=== PATIENT | female | born 1950 | race Caucasian/White ===

== ENCOUNTER → 2017-08-06 | Day surgery (SDC) | payer MEDICARE, OTHER ==
[2017-08-03 10:57] LABS: BASOPHILS % 0.9 % (0.0-1.0); EOSINOPHILS # (AUTO) 0.1 (0.0-0.4); EOSINOPHILS % 3.1 % (0.0-6.0); HEMATOCRIT 40.9 % (34.2-44.1); HEMOGLOBIN 13.7 g/dL (12.0-16.0); LYMPHOCYTES # (AUTO) 1.2 (1.0-3.2); LYMPHOCYTES % 26.2 % (18.0-39.1); MEAN CORPUSCULAR HEMOGLOBIN 29.8 pg (28-32); MEAN CORPUSCULAR HGB CONC 33.5 g/dL (31-35); MEAN CORPUSCULAR VOLUME 89.1 fL (81-99); MONOCYTES # (AUTO) 0.4 (0.2-0.8); MONOCYTES % 9.1 % (4.4-11.3); NEUTROPHILS # (AUTO) 2.7 (2.1-6.9); NEUTROPHILS % 60.5 % (38.7-80.0); PLATELET COUNT 178 x10e3/uL (140-360); RED BLOOD COUNT 4.59 x10e6/uL (3.6-5.1); RED CELL DISTRIBUTION WIDTH 11.9 % (11.7-14.4)
[2017-08-03 11:13] LABS: ANION GAP 12.2 mmol/L (8-16); BLOOD UREA NITROGEN 13 mg/dL (7-26); BUN/CREATININE RATIO 17 (6-25); CALCIUM 9.8 mg/dL (8.4-10.2); CARBON DIOXIDE 30 mmol/L (22-29); CHLORIDE 98 mmol/L (98-107); CREATININE, SERUM 0.77 mg/dL (0.57-1.11); EST GLOMERULAR FILTRATION RATE > 60 ML/MIN (60-); GLUCOSE 100 mg/dL (74-118); POTASSIUM 3.2 mmol/L (3.5-5.1); SODIUM 137 mmol/L (136-145)
--- NOTE | 2017-08-03 11:31 | Diagnostic Imaging Report ---
PROCEDURE: Frontal and lateral views of the chest. COMPARISON: None. INDICATIONS: PREOPERATIVE CHEST XRAY FOR COLONOSCOPY FINDINGS: Lines/tubes: None. Lungs: The lungs are well inflated and clear. There is no evidence of pneumonia or pulmonary edema. Pleura: There is no pleural effusion or pneumothorax. Heart and mediastinum: The heart and the mediastinum are normal. Bones: No acute bony abnormality. Degenerative changes of the thoracic spine. IMPRESSION: No acute radiographic abnormality. Dictated by: Johnie Oliver M.D. on 08/03/2017 at 11:41 Electronically approved by: Johnie Oliver M.D. on 08/03/2017 at 11:41
[~2017-08-06] MED LIST: B-COMPLEX PLUS1 EACH PO; DEXAMETHASONE SOD PHOS INJ 4 MG/ML VIAL ONE; ESIDRIX25 MG PO; FENTANYL CITRATE/PF 100MCG/2 ML INJ ONE; IFLORA PO; LEVOTHYROXINE50 MCG PO; LEVOTHYROXINE75 MCG PO; LIDOCAINE HCL 2% LOCAL INJ 5 ML SDV VIAL INJ ONE; MIDAZOLAM HCL 2 MG/2 ML VIAL ONE; NEXIUM40 MG PO; OCUVITE TABLET1 EAC1 PO; ONDANSETRON HCL INJ 2 MG/ML VIAL ONE; POTASSIUM CHLO10 ME1 PO; PROPOFOL IV EMULSION 10 MG/ML 20 ML VIAL ONE; SEVOFLURANE INHAL SOLN 250 ML PEN BTL ONE; SLOW RELEASE I142 MG PO; VIT C PO; VIT D2 PO; [UNRECOGNIZED DRUG - OTHER] PO
--- OUTSIDE RECORDS SUMMARY | 2017-08-06 09:32 | XMS REPORT ---
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 Allergies, Adverse Reactions, Alerts This patient has no known allergies or adverse reactions. Medications This patient has no known medications. Results Test Description Test Time Test Comments Text Results Atomic Results Result Comments CHEST 2 VIEWS [place] [address] Patient Name: EVY ALAN MR #: [id number] : 1950 Age/Sex: 67/F Req #: [id number] Adm Physician: Ordered by: EMIR BERKOWITZ MD Report #: [id number] Location: OR Room/Bed: Procedure: [id number] DX/CHEST 2 VIEWS Exam Date: 08/03/17 Exam Time: 1105 REPORT STATUS: Signed PROCEDURE: Frontal and lateral views of the chest. COMPARISON: None. INDICATIONS: PREOPERATIVE CHEST XRAY FOR COLONOSCOPY FINDINGS: Lines/tubes: None. Lungs: The lungs are well inflated and clear. There is no evidence of pneumonia or pulmonary edema. Pleura: There is no pleural effusion or pneumothorax. Heart and mediastinum: The heart and the mediastinum are normal. Bones: No acute bony abnormality. Degenerative changes of the thoracic spine. IMPRESSION: No acute radiographic abnormality. Dictated by: Anay Alicea M.D. on 08/03/2017 at 11:41 Electronically approved by: Anay Alicea M.D. on 08/03/2017 at 11:41 Dictated By : ANAY ALICEA MD 1141 Transcribed By: ADIS on 08/03/17 1141 COPY TO: EMIR BERKOWITZ MD
== END | disposition home or self-care (01) ==
LOC: OR 09:30
PROVIDERS: ATTEND Surgery
DX: R19.4 Change in bowel habit (principal); K57.30 Diverticulosis of large intestine without perforation or abscess without bleeding; K64.5 Perianal venous thrombosis; E03.9 Hypothyroidism, unspecified; J45.909 Unspecified asthma, uncomplicated; Z01.810 Encounter for preprocedural cardiovascular examination; Z01.812 Encounter for preprocedural laboratory examination; Z01.818 Encounter for other preprocedural examination
CPT/HCPCS: 36415 ×2; 45378; 71046; 80048; 84132; 85025; 93005; J1100; J2001; J2250; J2405

== ENCOUNTER 2021-07-29 15:00 | Inpatient (IN) | payer MEDICARE, OTHER ==
[2021-07-28 21:00] VITALS: BP 153/62
[~2021-07-29 15:00] MED LIST changes: -DEXAMETHASONE SOD PHOS INJ 4 MG/ML VIAL ONE; -FENTANYL CITRATE/PF 100MCG/2 ML INJ ONE; -LIDOCAINE HCL 2% LOCAL INJ 5 ML SDV VIAL INJ ONE; -MIDAZOLAM HCL 2 MG/2 ML VIAL ONE; -ONDANSETRON HCL INJ 2 MG/ML VIAL ONE; -PROPOFOL IV EMULSION 10 MG/ML 20 ML VIAL ONE; -SEVOFLURANE INHAL SOLN 250 ML PEN BTL ONE
[2021-07-29 16:04] VITALS: BP 132/79
[2021-07-29] MEDS ORDERED: VITAMIN D250 MCG PO (16:21)
[2021-07-29] MEDS ORDERED: MELOXICAM15 MG PO (16:22)
[2021-07-29] MEDS ORDERED: ATENOLOL25 MG PO (16:23)
[2021-07-29] MEDS ORDERED: OLMESARTAN-HCT1 EAC2 PO (16:26)
[2021-07-29] MEDS ORDERED: VITAMIN D2 PO (16:28)
[2021-07-29] MEDS ORDERED: VITAMIN D2 50000 UNIT PO SCH (16:45)
[2021-07-29 17:31] LABS: BASOPHILS % 0.2 % (0.0-1.0); EOSINOPHILS # (AUTO) 0.1 (0.0-0.4); EOSINOPHILS % 0.6 % (0.0-6.0); HEMATOCRIT 40.2 % (34.2-44.1); HEMOGLOBIN 13.2 g/dL (12.0-16.0); LYMPHOCYTES # (AUTO) 0.8 (1.0-3.2); LYMPHOCYTES % 9.5 % (18.0-39.1); MEAN CORPUSCULAR HEMOGLOBIN 28.6 pg (28-32); MEAN CORPUSCULAR HGB CONC 32.8 g/dL (31-35); MEAN CORPUSCULAR VOLUME 87.2 fL (81-99); MONOCYTES # (AUTO) 0.3 (0.2-0.8); MONOCYTES % 3.7 % (4.4-11.3); NEUTROPHILS # (AUTO) 6.9 (2.1-6.9); NEUTROPHILS % 85.8 % (38.7-80.0); PLATELET COUNT 217 x10e3/uL (140-360); RED BLOOD COUNT 4.61 x10e6/uL (3.6-5.1); RED CELL DISTRIBUTION WIDTH 13.6 % (11.7-14.4)
[2021-07-29 17:54] LABS: ALBUMIN 3.6 g/dL (3.5-5.0); ALBUMIN/GLOBULIN RATIO 1.4 (0.8-2.0); ANION GAP 12.7 mmol/L (8-16); CALCIUM 10.2 mg/dL (8.4-10.2); CREATININE, SERUM 0.95 mg/dL (0.57-1.11); POTASSIUM 3.7 mmol/L (3.5-5.1)
[2021-07-29] MEDS ORDERED: DIAZEPAM 5 MG TAB PO NR (19:30)
[2021-07-29 20:00] VITALS: BP 153/62
[2021-07-29 21:00] VITALS: BP 153/62
[2021-07-29] MEDS ORDERED: IOPAMIDOL 370 MG/ML 200 ML INFUS..BTL INJ ONE (21:40)
[2021-07-29] MEDS ORDERED: SODIUM CHLORIDE 0.9% 50ML 50 ML ONE (21:40)
[2021-07-30] VITALS (8 sets, daily range): BP systolic 119–168; BP diastolic 51–88
[2021-07-30] MEDS: SODIUM CHLORIDE 0.9% 1000ML 1,000 ML IV SCH ×3 (01:05→09:25)
[2021-07-30] MEDS ORDERED: CITRATE OF MAGNESIA 300ML BOTTLE PO ONE ×2 (05:00→07:00)
[2021-07-30] MEDS ORDERED: NON-FORMULARY MEDICATION (Meloxicam 15 MG) PO SCH (09:00)
[2021-07-30] MEDS ORDERED: NON-FORMULARY MEDICATION (Atenolol 25 MG) PO SCH (09:00)
[2021-07-30] MEDS ORDERED: HYOSCYAMINE SULFATE 0.5 MG/ML INJ ONE (13:04)
[2021-07-30] MEDS ORDERED: GLUCAGON FOR INJ 1 MG VIAL ONE (13:04)
[2021-07-30] MEDS ORDERED: METOCLOPRAMIDE HCL 10 MG/2ML VIAL ONE (13:04)
[2021-07-30] MEDS ORDERED: PROPOFOL IV EMULSION 10 MG/ML 20 ML VIAL ONE (13:04)
[2021-07-30] MEDS ORDERED: LIDOCAINE HCL 2% LOCAL INJ 5 ML SDV VIAL INJ ONE (13:04)
[2021-07-30 14:11] LABS: WBC,FECAL (FECAL LACTOFERRIN) NEGATIVE (NEGATIVE)
[2021-07-30] MEDS: ATENOLOL 50 MG TAB PO SCH (16:46)
[2021-07-30] MEDS: MELOXICAM 7.5 MG TAB PO SCH (16:46)
[2021-07-30] MEDS: DICYCLOMINE HCL 20 MG TAB PO SCH ×2 (16:46→21:00)
[2021-07-30] MEDS: OLMESARTAN 20 MG TAB PO SCH (16:46)
[2021-07-30] MEDS: HYDROCHLOROTHIAZIDE 25 MG TAB PO SCH (16:46)
[2021-07-30] MEDS ORDERED: DIAZEPAM 5 MG TAB PO PRN (20:45)
[2021-07-31] VITALS (7 sets, daily range): BP systolic 145–161; BP diastolic 63–80
[2021-07-31] MEDS: SODIUM CHLORIDE 0.9% 1000ML 1,000 ML IV SCH ×5 (04:14→22:00)
[2021-07-31 05:07] LABS: BASOPHILS % 0.4 % (0.0-1.0); EOSINOPHILS # (AUTO) 0.1 (0.0-0.4); EOSINOPHILS % 2.6 % (0.0-6.0); HEMATOCRIT 37.1 % (34.2-44.1); HEMOGLOBIN 12.3 g/dL (12.0-16.0); LYMPHOCYTES # (AUTO) 0.9 (1.0-3.2); LYMPHOCYTES % 16.3 % (18.0-39.1); MEAN CORPUSCULAR HGB CONC 33.2 g/dL (31-35); MEAN CORPUSCULAR VOLUME 87.5 fL (81-99); MONOCYTES # (AUTO) 0.4 (0.2-0.8); NEUTROPHILS % 73.3 % (38.7-80.0); PLATELET COUNT 203 x10e3/uL (140-360); RED BLOOD COUNT 4.24 x10e6/uL (3.6-5.1); RED CELL DISTRIBUTION WIDTH 13.5 % (11.7-14.4)
[2021-07-31] MEDS ORDERED: DIAZEPAM 5 MG TAB PO PRN (05:30)
[2021-07-31 05:40] LABS: ALBUMIN 3.2 g/dL (3.5-5.0); ALBUMIN/GLOBULIN RATIO 1.3 (0.8-2.0); ANION GAP 9.8 mmol/L (8-16); CALCIUM 9.4 mg/dL (8.4-10.2); CREATININE, SERUM 0.96 mg/dL (0.57-1.11)
[2021-07-31 05:53] LABS: POTASSIUM 2.8 mmol/L (3.5-5.1)
[2021-07-31] MEDS ORDERED: POTASSIUM CHLORIDE 20MEQ/100ML 200 ML IV ONE ×2 (06:00→12:00)
[2021-07-31] MEDS: HYDROCHLOROTHIAZIDE 25 MG TAB PO SCH (09:19)
[2021-07-31] MEDS: OLMESARTAN 20 MG TAB PO SCH (09:19)
[2021-07-31] MEDS: MELOXICAM 7.5 MG TAB PO SCH (09:19)
[2021-07-31] MEDS: DICYCLOMINE HCL 20 MG TAB PO SCH ×4 (09:19→20:47)
[2021-07-31] MEDS: ATENOLOL 50 MG TAB PO SCH (09:20)
[2021-07-31 09:53] LABS: C DIFFICILE TOXIN A&B AMP PROB NEGATIVE (NEGATIVE)
[2021-08-01] VITALS (8 sets, daily range): BP systolic 150–170; BP diastolic 63–74
[2021-08-01] MEDS: SODIUM CHLORIDE 0.9% 1000ML 1,000 ML IV SCH ×2 (05:26→16:15)
[2021-08-01 06:08] LABS: ANION GAP 9.1 mmol/L (8-16); CARBON DIOXIDE 18 mmol/L (22-29); CHLORIDE 116 mmol/L (98-107); CREATININE, SERUM 0.84 mg/dL (0.57-1.11); EST GLOMERULAR FILTRATION RATE 67 ML/MIN (60-); GLUCOSE 90 mg/dL (74-118); POTASSIUM 3.1 mmol/L (3.5-5.1); SODIUM 140 mmol/L (136-145)
[2021-08-01 06:11] LABS: BUN/CREATININE RATIO 6 (6-25)
[2021-08-01 06:37] LABS: BLOOD UREA NITROGEN < 5 mg/dL (7-26)
[2021-08-01] MEDS ORDERED: POTASSIUM CHLORIDE 20MEQ/100ML 100 ML IV ONE (09:00)
[2021-08-01] MEDS: OLMESARTAN 20 MG TAB PO SCH (09:29)
[2021-08-01] MEDS: HYDROCHLOROTHIAZIDE 25 MG TAB PO SCH (09:30)
[2021-08-01] MEDS: ATENOLOL 50 MG TAB PO SCH (09:31)
[2021-08-01] MEDS: DICYCLOMINE HCL 20 MG TAB PO SCH ×4 (09:31→22:04)
[2021-08-01] MEDS ORDERED: FENTANYL CITRATE/PF 100MCG/2 ML INJ ONE (13:20)
[2021-08-01] MEDS ORDERED: ACETAMINOPHEN 1000 MG/100 ML 100 ML IV ONE (14:09)
[2021-08-01] MEDS ORDERED: SUGAMMADEX SODIUM 200 MG/2 ML VIAL IV ONE (14:09)
[2021-08-01] MEDS ORDERED: PROPOFOL IV EMULSION 10 MG/ML 20 ML VIAL ONE (14:14)
[2021-08-01] MEDS ORDERED: LABETALOL HCL 5 MG/ML 20ML VIAL ONE (14:14)
[2021-08-01] MEDS ORDERED: LIDOCAINE HCL 2% LOCAL INJ 5 ML SDV VIAL INJ ONE (14:14)
[2021-08-01] MEDS ORDERED: ONDANSETRON HCL INJ 2MG/ML 2ML 2 MG/ML VIAL ONE (14:14)
[2021-08-01] MEDS ORDERED: POVIDONE IODINE 0.05% 0.05 % ML PO ONE (14:14)
[2021-08-01] MEDS ORDERED: LIDOCAINE HCL 2% JELLY 5 ML TUBE ONE (14:14)
[2021-08-01] MEDS ORDERED: SEVOFLURANE INHAL SOLN 250 ML PEN BTL ONE (14:14)
[2021-08-01] MEDS ORDERED: DEXAMETHASONE SOD PHOS INJ 4 MG/ML SDV ONE (14:14)
[2021-08-01] MEDS ORDERED: ROCURONIUM BROMIDE 10 MG/ML 5ML VIAL IV ONE (14:14)
[2021-08-01] MEDS ORDERED: BUPIVACAINE 0.25% 30ML SDV ONE (14:23)
[2021-08-01] MEDS ORDERED: ONDANSETRON HCL INJ 2MG/ML 2ML 2 MG/ML VIAL IV PRN (16:15)
[2021-08-01] MEDS ORDERED: ACETAMINOPHEN 1000 MG/100 ML IV PRN (16:15)
[2021-08-01] MEDS ORDERED: HYDROMORPHONE 1MG/1ML INJ IV PRN (16:15)
[2021-08-01] MEDS ORDERED: HYDROCODONE/APAP 7.5MG-325MG 1 EA TAB PO PRN (16:15)
[2021-08-01] MEDS ORDERED: MEPERIDINE HCL INJ 25 MG/ML VIAL ONE (16:47)
[2021-08-02] VITALS (8 sets, daily range): BP systolic 134–148; BP diastolic 63–84
[2021-08-02] MEDS: SODIUM CHLORIDE 0.9% 1000ML 1,000 ML IV SCH ×3 (02:15→23:58)
[2021-08-02 07:22] LABS: BASOPHILS % 0.1 % (0.0-1.0); EOSINOPHILS % 0.1 % (0.0-6.0); HEMATOCRIT 32.2 % (34.2-44.1); HEMOGLOBIN 10.8 g/dL (12.0-16.0); LYMPHOCYTES # (AUTO) 0.8 (1.0-3.2); LYMPHOCYTES % 10.6 % (18.0-39.1); MEAN CORPUSCULAR HEMOGLOBIN 28.4 pg (28-32); MEAN CORPUSCULAR HGB CONC 33.5 g/dL (31-35); MEAN CORPUSCULAR VOLUME 84.7 fL (81-99); MONOCYTES # (AUTO) 0.4 (0.2-0.8); MONOCYTES % 4.8 % (4.4-11.3); NEUTROPHILS # (AUTO) 6.4 (2.1-6.9); NEUTROPHILS % 83.9 % (38.7-80.0); PLATELET COUNT 186 x10e3/uL (140-360); RED CELL DISTRIBUTION WIDTH 13.4 % (11.7-14.4)
[2021-08-02 08:03] LABS: ANION GAP 12.2 mmol/L (8-16); CREATININE, SERUM 0.86 mg/dL (0.57-1.11); POTASSIUM 3.2 mmol/L (3.5-5.1)
[2021-08-02] MEDS ORDERED: POTASSIUM CHLORIDE 20 MEQ TAB CR PO STA (08:48)
[2021-08-02] MEDS: DICYCLOMINE HCL 20 MG TAB PO SCH ×4 (09:19→21:03)
[2021-08-02] MEDS: OLMESARTAN 20 MG TAB PO SCH (09:19)
[2021-08-02] MEDS: HYDROCHLOROTHIAZIDE 25 MG TAB PO SCH (09:20)
[2021-08-02] MEDS: ATENOLOL 50 MG TAB PO SCH (09:23)
[2021-08-03] VITALS: BP 149/69
[2021-08-03 00:20] LABS: % IRON SATURATION 17 % (15-50); IRON 33 ug/dL (50-170); TOTAL IRON BINDING CAPACITY 190 ug/dL (261-478); TRANSFERRIN 136 mg/dL (180-382)
[2021-08-03 04:00] VITALS: BP 144/66
[2021-08-03 08:00] VITALS: BP 144/66
[2021-08-03 08:45] VITALS: BP 126/74
[2021-08-03] MEDS: ATENOLOL 50 MG TAB PO SCH (09:00)
[2021-08-03] MEDS: DICYCLOMINE HCL 20 MG TAB PO SCH (09:00)
[2021-08-03] MEDS: OLMESARTAN 20 MG TAB PO SCH (09:00)
[2021-08-03] MEDS ORDERED: IRON SUCROSE 100 MG in SODIUM CHLORIDE 0.9% 100 ML 100 ML IV SCH (09:00)
[2021-08-03] MEDS: HYDROCHLOROTHIAZIDE 25 MG TAB PO SCH (09:00)
[2021-08-03] MEDS ORDERED: COLESTIPOL HCL1 GM PO (11:00)
[2021-08-03 12:23] VITALS: BP 150/74
[2021-08-04] MEDS ORDERED: ERGOCALCIFEROL 50,000 UNIT CAP PO SCH (09:00)
== END 2021-08-03 12:03 | disposition home or self-care (01) | DRG 419 ==
LOC: MED/SURG2 15:05
PROVIDERS: ADMIT Family Medicine; ATTEND Family Medicine
PROC: 0DB98ZX Excision of Duodenum, Via Natural or Artificial Opening Endoscopic, Diagnostic (ICD-10-PCS; 2021-07-30)
PROC: 0DB78ZX Excision of Stomach, Pylorus, Via Natural or Artificial Opening Endoscopic, Diagnostic (ICD-10-PCS; 2021-07-30)
PROC: 0DB68ZX Excision of Stomach, Via Natural or Artificial Opening Endoscopic, Diagnostic (ICD-10-PCS; 2021-07-30)
PROC: 0DBB8ZX Excision of Ileum, Via Natural or Artificial Opening Endoscopic, Diagnostic (ICD-10-PCS; 2021-07-30)
PROC: 0DBN8ZX Excision of Sigmoid Colon, Via Natural or Artificial Opening Endoscopic, Diagnostic (ICD-10-PCS; 2021-07-30 12:57)
PROC: 0DBP8ZX Excision of Rectum, Via Natural or Artificial Opening Endoscopic, Diagnostic (ICD-10-PCS; 2021-07-30 12:57)
PROC: 0FT44ZZ Resection of Gallbladder, Percutaneous Endoscopic Approach (ICD-10-PCS; principal; 2021-08-01 12:30)
DX: K81.0 Acute cholecystitis (principal); K44.9 Diaphragmatic hernia without obstruction or gangrene; K29.70 Gastritis, unspecified, without bleeding; R19.00 Intra-abdominal and pelvic swelling, mass and lump, unspecified site; K57.90 Diverticulosis of intestine, part unspecified, without perforation or abscess without bleeding; K63.89 Other specified diseases of intestine; K64.8 Other hemorrhoids; K20.90 Esophagitis, unspecified without bleeding; R19.7 Diarrhea, unspecified; R15.9 Full incontinence of feces; D50.9 Iron deficiency anemia, unspecified; I10 Essential (primary) hypertension; E87.6 Hypokalemia; K82.8 Other specified diseases of gallbladder; Z20.822 Contact with and (suspected) exposure to COVID-19
CPT/HCPCS: 36415; 43239; 45378; 45380; 74177; 78227; 80048; 80053; 82270; 82607; 82746; 83540; 83630; 83993; 84466; 85025; 85045; 87045; 87177; 87328; 87493; 88304; 88305; 88312; 88313; 88342; 96361; 99251; A9537; C1766; J1100; J1610; J1756; J1980; J2001; J2175; J2405; J2765; J3010; J3480; J7030; Q9967; U0002